=== PATIENT | female | born 1980 | race Caucasian/White ===

== ENCOUNTER → 2017-01-02 | Outpatient (CLI) | payer OTHER ==
[2017-01-02 10:11] LABS: FREE T3 4.44 PG/ML (2.77-5.27); FREE T4 (FREE THYROXINE) 1.38 ng/dL (0.93-1.71)
== END ==
LOC: LAB 08:47
PROVIDERS: ATTEND Internal Medicine
DX: E03.4 Atrophy of thyroid (acquired) (principal)
CPT/HCPCS: 36415; 84439; 84443; 84481